=== PATIENT | male | born 1985 | race African-American/Black ===

== ENCOUNTER 2023-04-18 11:51 | Emergency (ER) | payer OTHER ==
[~2023-04-18] VITALS: Ht 177.8 cm; Wt 72.7 kg
[2023-04-18 13:30] VITALS: PULSE 85; RESP 16; O2SAT 100
[2023-04-18] MEDS ORDERED: CEPH500T PO (15:40)
[2023-04-18] MEDS ORDERED: BACDST PO (15:40)
[2023-04-18] MEDS ORDERED: IBUP1TAB5 PO (15:40)
[2023-04-18] MEDS ORDERED: HYDROcodone-ACET 5/325MG TAB PO ONE (15:45)
[2023-04-18 16:42] VITALS: BP 147/86; PULSE 75; RESP 16; TEMP 98.3; O2SAT 97
== END 2023-04-18 17:11 | disposition home or self-care (01) ==
LOC: ER 11:51
DX: L02.31 Cutaneous abscess of buttock (principal)
CPT/HCPCS: 10060

== ENCOUNTER 2023-04-20 12:24 | Emergency (ER) | payer OTHER ==
[~2023-04-20] VITALS: Ht 177.8 cm; Wt 72.3 kg
[~2023-04-20 12:24] MED LIST: BACDST PO; CEPH500T PO; IBUP1TAB5 PO
[2023-04-20 12:45] VITALS: BP 133/80; TEMP 97.3
[2023-04-20 14:56] VITALS: PULSE 70; RESP 18; O2SAT 100
== END 2023-04-20 15:01 | disposition home or self-care (01) ==
LOC: ER 12:24
DX: L02.31 Cutaneous abscess of buttock (principal); Z79.1 Long term (current) use of non-steroidal anti-inflammatories (NSAID); Z79.899 Other long term (current) drug therapy

== ENCOUNTER 2023-04-23 14:22 | Emergency (ER) | payer OTHER ==
[~2023-04-23] VITALS: Ht 177.8 cm; Wt 73.2 kg
[2023-04-23 14:30] VITALS: BP 150/89; PULSE 86; RESP 16; O2SAT 97
[2023-04-24] MEDS ORDERED: MUPI2CRE17 EX (09:17)
== END 2023-04-23 16:15 | disposition left against medical advice (07) ==
LOC: ER 14:22
DX: L02.415 Cutaneous abscess of right lower limb (principal); Z53.21 Procedure and treatment not carried out due to patient leaving prior to being seen by health care provider

== ENCOUNTER 2023-04-24 08:20 | Emergency (ER) | payer OTHER ==
[~2023-04-24] VITALS: Ht 177.8 cm; Wt 72.8 kg
[2023-04-24 09:12] VITALS: BP 146/92; PULSE 66; RESP 18; TEMP 98.1; O2SAT 98
[2023-04-24] MEDS ORDERED: NEOMYCIN-BACITRACIN-POLYM UNITDOSE PKG TOP OINT TOP ONE (09:15)
[2023-04-24] MEDS ORDERED: MUPI2CRE17 EX (09:17)
== END 2023-04-24 09:17 | disposition home or self-care (01) ==
LOC: ER 08:20
DX: L02.212 Cutaneous abscess of back [any part, except buttock and flank] (principal); Z79.1 Long term (current) use of non-steroidal anti-inflammatories (NSAID); Z79.899 Other long term (current) drug therapy